=== PATIENT | male | born 1960 | race Caucasian/White ===

== ENCOUNTER → 2017-06-28 | Emergency (ER) | payer OTHER ==
[~2017-06-28] VITALS: Ht 175.3 cm; Wt 133.8 kg
[~2017-06-28] MED LIST: ATORVASTATIN CA10 MG; BISOPROLOL FUMAR5 MG; COZAAR25 MG; ECOTRIN81 MG; GLUMETZA1000 MG; JANUVIA25 MG; LIPITOR40 MG; LISINOPRIL-HCTZ1 TAB; METOPROLOL ER-1 EAC1; MICROZIDE12.5 MG; OMEGA 3 1,0001 EACH; VITAMIN D-32000 UNIT
== END | disposition home or self-care (01) ==
LOC: ER 08:57
DX: L53.8 Other specified erythematous conditions (principal); T21.2 Burn of second degree of trunk; X10.2XXS Contact with fats and cooking oils, sequela

== ENCOUNTER 2022-07-12 10:57 | Emergency (ER) | payer OTHER ==
[~2022-07-12] VITALS: Ht 175.3 cm; Wt 121.1 kg
[2022-07-12] MEDS ORDERED: TRIJARDY XR 251 EACH PO (11:19)
== END 2022-07-12 17:13 ==
LOC: ER 10:57
DX: M79.661 Pain in right lower leg (principal)

== ENCOUNTER 2022-08-22 08:01 | Outpatient (CLI) | payer OTHER | END 2022-08-22 08:12 | disposition home or self-care (01) | LOC: MRI 08:01 | PROVIDERS: ATTEND Physical Medicine & Rehabilitation | DX: M54.16 Radiculopathy, lumbar region (principal); M62.81 Muscle weakness (generalized); M21.372 Foot drop, left foot; I73.9 Peripheral vascular disease, unspecified; I25.10 Atherosclerotic heart disease of native coronary artery without angina pectoris; E11.42 Type 2 diabetes mellitus with diabetic polyneuropathy; I10 Essential (primary) hypertension | CPT/HCPCS: 72148 ==

== ENCOUNTER → 2022-08-22 | Outpatient (CLI) | payer OTHER ==
[~2022-08-22] MED LIST changes: +TRIJARDY XR 251 EACH PO
== END | disposition home or self-care (01) ==
LOC: NUCLEAR 09:26
PROVIDERS: ATTEND Physical Medicine & Rehabilitation
DX: M54.16 Radiculopathy, lumbar region (principal); M62.81 Muscle weakness (generalized); M21.372 Foot drop, left foot; I73.9 Peripheral vascular disease, unspecified; I25.10 Atherosclerotic heart disease of native coronary artery without angina pectoris; E11.42 Type 2 diabetes mellitus with diabetic polyneuropathy; I11.9 Hypertensive heart disease without heart failure